=== PATIENT | male | born 1995 | race Two or more races ===

== ENCOUNTER → 2023-05-22 | Outpatient (CLI) | payer OTHER | LOC: M PLAIMG 11:21 | PROVIDERS: ATTEND Nurse Practitioner Family | DX: Q07.00 Arnold-Chiari syndrome without spina bifida or hydrocephalus (principal) ==

== ENCOUNTER → 2023-07-08 | Outpatient (CLI) | payer OTHER | LOC: M PLAIMG 12:47 | PROVIDERS: ATTEND Nurse Practitioner Family | DX: Q07.00 Arnold-Chiari syndrome without spina bifida or hydrocephalus (principal) ==